=== PATIENT | male | born 1970 | race Caucasian/White ===

== ENCOUNTER → 2021-01-09 09:10 | Outpatient (CLI) | payer OTHER, SELFPAY ==
--- NOTE | 2021-01-09 | DI.US.S_ITS ---
PROCEDURE: US SCROTUM INDICATIONS: PREVIOUS RIGHT TESTICULAR LUMP TECHNIQUE: Real-time scanning was performed of the scrotum and testicles, with image documentation. Color and pulse Doppler interrogation was performed of both testicles. COMPARISON: None. FINDINGS: Right: Testicle is normal in size at 2.2 x 3.0 x 4.7 cm, and homogenous in echotexture. Epididymis is normal in overall size and morphology. No hydrocele or varicoceles. Overlying scrotal skin is normal in thickness. Left: Testicle is normal in size at 2.3 x 3.3 x 4.9 cm, and homogeneous in echotexture. Epididymis is normal in overall size and morphology. No hydrocele or varicoceles. Overlying scrotal skin is normal in thickness. Doppler: Color and pulse Doppler demonstrate normal and symmetric arterial flow in both testicles. IMPRESSION: Normal exam. Dictated by: Mal Casper M.D. on 01/09/2021 at 9:51 Approved by: Mal Casper M.D. on 01/09/2021 at 9:52
== END ==
PROVIDERS: PCP Internal Medicine; Referring Provider Internal Medicine; Visit Provider Internal Medicine
DX: N50.89 Other specified disorders of the male genital organs (principal)
CPT/HCPCS: 76870